=== PATIENT | female | born 1935 | race Caucasian/White ===

== ENCOUNTER → 2019-05-29 | Outpatient (CLI) | payer MEDICARE, OTHER | LOC: LAB SHORT 09:00 → LAB 09:00 | DX: R30.0 Dysuria (principal) | CPT/HCPCS: 87086 ==

== ENCOUNTER → 2019-07-28 | Outpatient (CLI) | payer MEDICARE, OTHER | END | disposition home or self-care (01) | LOC: LAB SHORT 10:45 → LAB EV 10:45 | DX: R35.0 Frequency of micturition (principal) | CPT/HCPCS: 87077; 87086; 87186 ==

== ENCOUNTER → 2020-06-19 | Outpatient (CLI) | payer MEDICARE, OTHER | END | disposition home or self-care (01) | LOC: LAB SHORT 13:52 → PLD 13:52 | DX: M79.674 Pain in right toe(s) (principal); M1A.9XX1 Chronic gout, unspecified, with tophus (tophi) | CPT/HCPCS: 88305; 89060 ==

== ENCOUNTER 2020-12-18 01:10 | Day surgery (SDC) | payer MEDICARE, BC | END 2020-12-18 22:52 | disposition home or self-care (01) | LOC: WOUND 01:10 | DX: S51.812A Laceration without foreign body of left forearm, initial encounter (principal); W19.XXXA Unspecified fall, initial encounter; Z87.891 Personal history of nicotine dependence | CPT/HCPCS: G0463 ==

== ENCOUNTER 2020-12-26 00:12 | Day surgery (SDC) | payer MEDICARE, BC | END 2020-12-26 22:52 | disposition home or self-care (01) | LOC: WOUND 00:12 | DX: S51.802D Unspecified open wound of left forearm, subsequent encounter (principal); W19.XXXD Unspecified fall, subsequent encounter | CPT/HCPCS: G0463 ==

== ENCOUNTER 2021-01-02 00:31 | Day surgery (SDC) | payer MEDICARE, BC | END 2021-01-02 22:45 | disposition home or self-care (01) | LOC: WOUND 00:31 | DX: S51.802A Unspecified open wound of left forearm, initial encounter (principal); E03.9 Hypothyroidism, unspecified; W19.XXXA Unspecified fall, initial encounter | CPT/HCPCS: G0463 ==

== ENCOUNTER 2021-01-09 00:25 | Day surgery (SDC) | payer MEDICARE, BC | END 2021-01-09 23:15 | disposition home or self-care (01) | LOC: WOUND 00:25 | DX: S51.802D Unspecified open wound of left forearm, subsequent encounter (principal); X58.XXXD Exposure to other specified factors, subsequent encounter | CPT/HCPCS: G0463 ==

== ENCOUNTER 2021-01-23 00:49 | Day surgery (SDC) | payer MEDICARE, BC | END 2021-01-23 22:55 | disposition home or self-care (01) | LOC: WOUND 00:49 | DX: S51.802D Unspecified open wound of left forearm, subsequent encounter (principal); W19.XXXD Unspecified fall, subsequent encounter | CPT/HCPCS: G0463 ==

== ENCOUNTER → 2021-07-18 | Outpatient (CLI) | payer MEDICARE, BC | END | disposition home or self-care (01) | LOC: LAB 16:01 → LAB SHORT 16:01 | DX: N39.0 Urinary tract infection, site not specified (principal) | CPT/HCPCS: 87077; 87086; 87186 ==

== ENCOUNTER → 2021-11-22 | Outpatient (CLI) | payer MEDICARE, BC | END | disposition home or self-care (01) | LOC: LAB SHORT 11:04 → PLD 11:04 | DX: L30.8 Other specified dermatitis (principal) | CPT/HCPCS: 88305 ==

== ENCOUNTER → 2022-02-07 | Outpatient (CLI) | payer MEDICARE, BC ==
[2022-02-07 17:38] LABS: BASOPHILS ABSOLUTE AUTO 0.07 K/mm3 (0.00-0.23); BASOPHILS PERCENT AUTO 1 % (0-2); EOSINOPHILS ABSOLUTE AUTO 0.25 K/mm3 (0.00-0.68); EOSINOPHILS PERCENT AUTO 3 % (0-6); Hematocrit 42.3 % (33.0-51.0); Hemoglobin 14.8 g/dL (11.5-16.0); IMMATURE GRAN ABSOLUTE AUTO 0.04 K/mm3 (0.00-0.10); IMMATURE GRAN PERCENT AUTO 0 % (0-1); LYMPHOCYTES ABSOLUTE AUTO 2.05 K/mm3 (0.84-5.20); LYMPHOCYTES PERCENT AUTO 20 % (21-46); MONOCYTES ABSOLUTE AUTO 0.74 K/mm3 (0.16-1.47); MONOCYTES PERCENT AUTO 7 % (4-13); Mean Corpuscular Volume 94 fL (80-100); Mean Platelet Volume 10.2 fL (9.1-12.4); NEUTROPHILS ABSOLUTE AUTO 6.94 K/mm3 (1.96-9.15); NEUTROPHILS PERCENT AUTO 69 % (41-73); Platelet Count 296 K/mm3 (150-400); RDW Coefficient Variation 14.7 % (11.7-14.2); RDW Standard Deviation 50.8 fL (35.1-46.3); Red Blood Cell Count 4.48 M/mm3 (3.80-5.20); White Blood Cell Count 10.09 K/mm3 (4.00-11.30)
[2022-02-07 19:12] LABS: International Normalized Ratio 0.95
== END | disposition home or self-care (01) ==
LOC: LAB SHORT 17:26
PROVIDERS: Physician Assistant
DX: R58 Hemorrhage, not elsewhere classified (principal); R23.3 Spontaneous ecchymoses
CPT/HCPCS: 85025; 85610; 85730

== ENCOUNTER → 2022-07-18 | Outpatient (CLI) | payer MEDICARE, BC | END | disposition home or self-care (01) | LOC: LAB 11:36 → LAB SHORT 11:36 → PLD 11:36 | DX: D04.4 Carcinoma in situ of skin of scalp and neck (principal); C44.212 Basal cell carcinoma of skin of right ear and external auricular canal | CPT/HCPCS: 88305 ==

== ENCOUNTER → 2022-09-06 | Outpatient (CLI) | payer MEDICARE, BC ==
[2022-09-06 13:19] LABS: Body Fluid Crystals NEG (NEGATIVE)
[2022-09-06 13:43] LABS: RBC Count, Synovial Fluid 1180000 /mm3 (0-0)
[2022-09-06 14:18] LABS: WBC Count, Synovial Fluid 3480 /mm3 (0-180)
[2022-09-06 15:08] LABS: Lymphs, Synovial Fluid 25 % (0-15); Monocytes/Macrophages, Synovia 44 % (0-65); Neutrophils, Synovial Fluid 31 % (0-24)
[2022-09-06 15:09] LABS: Appearance, Synovial Fluid Bloody (Clear); Color, Synovial Fluid Red (None-P Yel)
== END | disposition home or self-care (01) ==
LOC: LAB SHORT 12:50
PROVIDERS: Family Medicine
DX: M70.62 Trochanteric bursitis, left hip (principal)
CPT/HCPCS: 87070; 87075; 87205; 89051; 89060

== ENCOUNTER → 2023-06-27 | Outpatient (CLI) | payer MEDICARE, BC | END | disposition home or self-care (01) | LOC: LAB SHORT 17:10 → LAB 17:10 | DX: N39.490 Overflow incontinence (principal) | CPT/HCPCS: 87086 ==